=== PATIENT | female | born 1950 | race Caucasian/White ===

== ENCOUNTER 2016-10-01 01:25 | Inpatient (IN) | payer OTHER ==
[~2016-10-01] VITALS: Ht 170.2 cm; Wt 54.0 kg
[~2016-10-01 01:25] MED LIST: NEURONTIN300 MG; OXYCODONE5 M3; TYLENOL325 MG; ULT50 PO; XAN5
[2016-10-01 03:01] LABS: BASOPHIL % 0.4 % (0-2); PLATELET COUNT 272 x10^3mcL (130-400); RED CELL DISTRIBUTION WIDTH 13.3 % (11.5-14.5)
[2016-10-01 03:02] LABS: CALCIUM 7.8 mg/dL (8.5-10.1); CARBON DIOXIDE 24.7 mmol/L (21-32); CHLORIDE SERUM 94 mmol/L (98-107); CREATININE SERUM 0.5 mg/dL (0.6-1.0); GFR1 > 60 mL/min; GLUCOSE SERUM 98 mg/dL (74-106); POTASSIUM SERUM 4.3 mmol/L (3.5-5.1); SODIUM SERUM 127 mmol/L (136-145)
[2016-10-01 03:07] LABS: ALBUMIN 3.7 g/dL (3.4-5.0); ALKALINE PHOSPHATASE 61 U/L (46-116); ALT/SGPT 29 U/L (14-59); AST/SGOT 21 U/L (15-37); BILIRUBIN TOTAL 0.54 mg/dL (0.20-1.00); TOTAL PROTEIN, SERUM 6.5 g/dL (6.4-8.2)
[2016-10-01 07:23] LABS: MAGNESIUM 1.6 mg/dL (1.8-2.4); PHOSPHOROUS 3.7 mg/dL (2.5-4.9)
[2016-10-01 07:30] LABS: FREE T4 1.23 ng/dL (0.76-1.46); FREE THYROXINE INDEX 2.9 ug/dL (1.4-4.5); T4(THYROXINE) 8.1 ug/dL (4.7-13.3)
[2016-10-01 07:47] LABS: CHOLESTEROL/HDL RATIO 1.6
[2016-10-01 08:10] LABS: microscopic required? NO
[2016-10-01 08:17] VITALS: BP 134/72
[2016-10-01 08:26] LABS: urine erythrocyte NEGATIVE (NEGATIVE)
[2016-10-01 08:30] VITALS: BP 127/65
[2016-10-01 09:01] LABS: AMPHETAMINE QUAL UR NONE DETECTED (NEG <=1000)
[2016-10-01 09:51] LABS: T3 TOTAL 1.05 ng/mL
[2016-10-01 09:58] VITALS: BP 127/65
[2016-10-01] MEDS ORDERED: XANAX0.5 MG PO (10:50)
[2016-10-01] MEDS ORDERED: LOSARTAN POTASS50 M1 PO (10:51)
[2016-10-01] MEDS ORDERED: ASPIR 8181 MG PO (10:52)
[2016-10-01] MEDS ORDERED: CRESTOR10 M1 (10:52)
[2016-10-01] MEDS ORDERED: ADV100/50 (10:53)
[2016-10-01] MEDS ORDERED: CRESTOR20 M1 PO (10:54)
[2016-10-01] MEDS ORDERED: PANTOPRAZOLE SO40 M1 PO (10:57)
[2016-10-01] MEDS ORDERED: NATURAL VITAM1000 MG PO (10:57)
[2016-10-01] MEDS ORDERED: CENTRUM1 TA2 PO (10:58)
[2016-10-01] MEDS ORDERED: CALCIUM 600 +1 EACH PO (10:58)
[2016-10-01 13:28] VITALS: BP 129/63
[2016-10-01 16:50] VITALS: BP 114/52
[2016-10-01 22:02] VITALS: BP 93/46
[2016-10-02 06:25] VITALS: BP 113/61
[2016-10-02 06:34] LABS: PLATELET COUNT 204 x10^3mcL (130-400); RED CELL DISTRIBUTION WIDTH 13.4 % (11.5-14.5)
[2016-10-02 06:44] LABS: CALCIUM 7.6 mg/dL (8.5-10.1); CARBON DIOXIDE 26.2 mmol/L (21-32); CHLORIDE SERUM 100 mmol/L (98-107); CREATININE SERUM 0.4 mg/dL (0.6-1.0); GFR1 > 60 mL/min; GLUCOSE SERUM 120 mg/dL (74-106); MAGNESIUM 1.7 mg/dL (1.8-2.4); POTASSIUM SERUM 4.6 mmol/L (3.5-5.1); SODIUM SERUM 133 mmol/L (136-145)
[2016-10-02 06:58] LABS: ALBUMIN 2.9 g/dL (3.4-5.0)
[2016-10-02 07:43] LABS: BASOPHIL % 0 % (0-2)
[2016-10-02 08:29] VITALS: BP 99/50
[2016-10-02 09:58] VITALS: BP 123/50
[2016-10-02 13:53] VITALS: BP 119/53
[2016-10-02 17:19] VITALS: BP 94/54
[2016-10-02 21:53] VITALS: BP 118/65
[2016-10-03 05:45] VITALS: BP 115/69
[2016-10-03 06:42] LABS: CALCIUM 7.2 mg/dL (8.5-10.1); CARBON DIOXIDE 26.7 mmol/L (21-32); CHLORIDE SERUM 98 mmol/L (98-107); CREATININE SERUM 0.4 mg/dL (0.6-1.0); GFR1 > 60 mL/min; GLUCOSE SERUM 119 mg/dL (74-106); MAGNESIUM 1.8 mg/dL (1.8-2.4); POTASSIUM SERUM 4.4 mmol/L (3.5-5.1); SODIUM SERUM 130 mmol/L (136-145)
[2016-10-03 06:45] LABS: BASOPHIL % 0.5 % (0-2); PLATELET COUNT 163 x10^3mcL (130-400); RED CELL DISTRIBUTION WIDTH 13.4 % (11.5-14.5)
[2016-10-03 06:50] LABS: ALBUMIN 2.6 g/dL (3.4-5.0)
[2016-10-03 09:00] VITALS: BP 136/80
[2016-10-03] MEDS ORDERED: FOL1 PO (16:40)
[2016-10-03] MEDS ORDERED: APAP/OXYCODONE1 TA4 PO (16:41)
[2016-10-03] MEDS ORDERED: THI100 PO (16:41)
[2016-10-03 17:15] VITALS: BP 121/60
[2016-10-03 21:24] VITALS: BP 135/68
[2016-10-04 06:11] VITALS: BP 137/64
[2016-10-04 09:31] VITALS: BP 105/53
[2016-10-04 10:16] VITALS: BP 105/53
== END 2016-10-04 11:39 | disposition home health service (06) | DRG 480 ==
LOC: ED 01:25 → MU 05:50 → DU 05:50 → MU 10-02 07:21
PROVIDERS: Emergency Medicine; Family Medicine; Neuromusculoskeletal Medicine, Sports Medicine; ADMIT Family Medicine
PROC: 0QS604Z Reposition Right Upper Femur with Internal Fixation Device, Open Approach (ICD-10-PCS; principal; 2016-10-01 13:00)
DX: S72.144A Nondisplaced intertrochanteric fracture of right femur, initial encounter for closed fracture (principal); E43 Unspecified severe protein-calorie malnutrition; G92 Toxic encephalopathy; E87.1 Hypo-osmolality and hyponatremia; I42.9 Cardiomyopathy, unspecified; D62 Acute posthemorrhagic anemia; Z68.1 Body mass index [BMI] 19.9 or less, adult; J44.9 Chronic obstructive pulmonary disease, unspecified; E83.51 Hypocalcemia; E83.42 Hypomagnesemia; M54.12 Radiculopathy, cervical region; F10.229 Alcohol dependence with intoxication, unspecified; M25.78 Osteophyte, vertebrae; F11.10 Opioid abuse, uncomplicated; F41.9 Anxiety disorder, unspecified; W18.39XA Other fall on same level, initial encounter; F17.210 Nicotine dependence, cigarettes, uncomplicated; K21.9 Gastro-esophageal reflux disease without esophagitis; K22.70 Barrett's esophagus without dysplasia; I10 Essential (primary) hypertension; E87.8 Other disorders of electrolyte and fluid balance, not elsewhere classified; D72.829 Elevated white blood cell count, unspecified; I25.10 Atherosclerotic heart disease of native coronary artery without angina pectoris; D50.9 Iron deficiency anemia, unspecified; Y93.89 Activity, other specified; I25.2 Old myocardial infarction; Y92.018 Other place in single-family (private) house as the place of occurrence of the external cause; Z86.74 Personal history of sudden cardiac arrest; Z95.5 Presence of coronary angioplasty implant and graft; Z79.82 Long term (current) use of aspirin; Z79.899 Other long term (current) drug therapy
CPT/HCPCS: 80307; 83880; 84439; 94150; 97110-GP; 97116-GP; 97530-GP; C1713; C9113; G0480; J0690; J1170; J1644; J1885; J2175; J2250; J2270; J2405; J2800; J3010; J3475; J3490; J7030

== ENCOUNTER 2019-03-15 19:57 | Emergency (ER) | payer OTHER ==
[~2019-03-15] VITALS: Ht 170.2 cm; Wt 47.6 kg
[~2019-03-15 19:57] MED LIST changes: +ADV100/50; +APAP/OXYCODONE1 TA4 PO; +ASPIR 8181 MG PO; +CALCIUM 600 +1 EACH PO; +CENTRUM1 TA2 PO; +CRESTOR10 M1; +CRESTOR20 M1 PO; +FOL1 PO; +LOSARTAN POTASS50 M1 PO; +NATURAL VITAM1000 MG PO; +PANTOPRAZOLE SO40 M1 PO; +THI100 PO; +XANAX0.5 MG PO
[2019-03-15 20:14] VITALS: Ht 170.2 cm; Wt 47.6 kg
[2019-03-15 21:56] VITALS: BP 116/76
== END 2019-03-15 21:56 | disposition home or self-care (01) ==
LOC: ED 19:57
DX: S81.811A Laceration without foreign body, right lower leg, initial encounter (principal); J44.9 Chronic obstructive pulmonary disease, unspecified; W20.8XXA Other cause of strike by thrown, projected or falling object, initial encounter; Y93.89 Activity, other specified; Y92.89 Other specified places as the place of occurrence of the external cause; Y99.8 Other external cause status
CPT/HCPCS: 90715